=== PATIENT | female | born 1940 | race Caucasian/White ===

== ENCOUNTER 2020-07-03 14:11 | Inpatient (IN) | payer MEDICARE, OTHER, SELFPAY ==
[2020-07-03 14:17] VITALS: BP 127/62; PULSE 70; RESP 18; TEMP 36.6; O2SAT 98; BMI 21.2
--- NOTE | 2020-07-03 14:47 | W.ED.FALL ---
HPI - Fall General: Chief Complaint: Fall Stated Complaint: AMS Time Seen by Provider: 07/03/20 14:14 History of Present Illness: HPI Narrative: 80-year-old female comes in she seems somewhat confused she said she fell 2 nights ago did not strike her head or lose consciousness. She lives with her son and eminence. She has bilateral leg wounds have been treating for the local clinic. She denies fever sweats chills denies chest pain, her primary complaint is first the rash on her body and her second complaint is that she cannot wallk. complaint: fall Onset (ago): hour(s) Fall from: standing Fall witnessed: no Place fall occurred: home Loss of consciousness: None Prolonged down time: no Symptoms prior to fall: lightheadedness and dizziness Context: tripped/slipped Severity: moderate Associated symptoms-after fall: Reports no associated symptoms; Denies abdominal pain or chest pain Review of Systems Const: Denies: fever(s), chills, body aches, change in appetite, fatigue or malaise ENMT: Denies: throat pain, ear or mastoid pain, nasal discharge or nasal congestion Card: Denies: chest pain, edema, dyspnea on exertion or orthopnea Resp: Denies: dyspnea, productive cough or non-productive cough GI: Denies: abdominal pain, nausea, vomiting, hematemesis, coffee ground emesis, diarrhea, constipation, bloating, hematochezia or melena : Denies: flank pain, difficulty voiding, dysuria, urinary frequency or urinary urgency Skin/Breast: Denies: rash or pruritus PFS ED PFSH: Medical History (Updated 07/06/20 @ 08:14 by Farhad Santoro DO) Gait instability -strict fall precautions given recent frequent falls and limited ability to ambulate -PT evaluation appreciated -due to noted mention of altered mental status on EMS run sheet, ordered CT head without contrast which is negative for acute findings, noted moderate diffuse white matter disease (chronic) -X-rays done and report reviewed, no evidence of fracture Gastric ulcer Hypertension -normotensive, monitor vital signs -on metoprolol Hyponatremia -Likely secondary to hypovolemia -improved with hydration Liver cirrhosis -reported hx, no details available currently, had been following up with application development specialist in [place], request records -unclear etiology and complications -noted hyperbilirubinemia, with otherwise normal LFTs; trending down, continue to trend -US noted with no hepatomegaly, duct evaluation -noted ammonia, hepatitis panel, INR, PT -on cholestyramine Peripheral neuropathy -with noted macrocytic anemia, normal B12, folate, TSH -is on gabapentin, folic acid -suspect this is likely contributing to poor balance and gait instability Surgical History History of hysterectomy S/P appendectomy S/P tonsillectomy and adenoidectomy Family History (Updated 07/03/20 @ 19:48 by Mackenzie Rodriguez MD) Mother Lung disease Asthma Father CAD (coronary artery disease) Social History (Updated 07/03/20 @ 19:49 by Mackenzie Rodriguez MD) Smoking and tobacco status: former smoker Quit status (tobacco): has quit using tobacco Former quit date comment: 35 yrs ago Alcohol intake: current Alcohol intake frequency: holidays/special occasions only Substance/Drug Use: never Household members: children Marital status: / Current occupational status: retired Physical Exam Const: COMMON NORMALS: no acute distress GENERAL APPEARANCE: cooperative and comfortable ORIENTATION/CONSCIOUSNESS: Yes awake, Yes oriented to person, Yes oriented to place and Yes oriented to time HENMT: COMMON NORMALS: normocephalic and atraumatic HEAD & SCALP: normocephalic and atraumatic Eye: COMMON NORMALS: Equal, round and reactive pupils present, EOMs intact bilaterally, conjunctivae normal and no scleral icterus CONJUNCTIVA: Yes conjunctivae normal PUPIL: Yes Equal, round and reactive pupils present Neck/C-Spine: COMMON NORMALS: full ROM, no lymphadenopathy, supple and no JVD Lymph: LYMPHATIC: no lymphadenopathy noted and no lymphedema noted Resp: COMMON NORMALS: normal respiratory effort, No retractions, No use of accessory muscles and clear to auscultation bilaterally AUSCULTATION: clear to auscultation bilaterally Cardio: COMMON NORMALS: no JVD, regular rate, regular rhythm and No murmurs present (Cardio) RATE: regular rate RHYTHM: regular rhythm GI: COMMON NORMALS: Soft to palpation and No hepatosplenomegaly present AUSCULTATION: Yes normoactive bowel sounds PALPATION: Yes Soft to palpation, No Tenderness to palpation present (GI), No Guarding due to palpation present (GI) and Yes No hepatosplenomegaly present Extremity: COMMON NORMALS: normal to inspection, capillary refill normal, no clubbing, cyanosis or edema, no calf tenderness and no pedal edema Neuro: SENSORIUM/ORIENTATION: Yes oriented to person, Yes oriented to place and Yes oriented to time Skin: COMMON NORMALS: no rashes or lesions noted GENERAL SKIN EXAM: no rashes or lesions noted Course ED course: Patient unable to ambulate has mild cognitive impairment as well. Hyponatremia may play a role in it. We will go ahead and put her on observation discussed Dr. Rodriguez orders are written Vital Signs: Vital signs: Vital Signs Temperature 98.4 F 07/05/20 17:36 Pulse Rate 72 07/05/20 17:36 Respiratory Rate 18 07/05/20 17:36 Blood Pressure 108/65 07/05/20 17:36 Pulse Oximetry 95 07/05/20 17:36 MDM - Fall Lab Data: Labs: Lab Results 07/03/20 07/03/20 07/03/20 Range/Units 14:59 14:59 14:59 WBC 10.1 H (4.0-10.0) 10^3/ uL Corrected WBC RBC 3.31 L (4.1-5.3) 10^6/u L Hgb 11.0 L (11.5-15.3) g/dL Hct 33.1 L (37.0-47.0) % MCV 100.0 H (81-99) fL MCH 33.2 (28.0-34.0) pg MCHC 33.2 (30.0-36.0) g/dL RDW 13.2 (12.1-15.1) % Plt Count 111 L (130-400) 10^3/c mm MPV 11.1 H (7.4-10.4) fL Gran % Neut % (Auto) 46.0 % Lymph % (Auto) 17.2 % [place] % (Auto) 10.2 % Eos % (Auto) 25.1 % Baso % (Auto) 1.1 % Neut # (Auto) 4.64 (1.8-7.7) 10^3/u L Lymph # (Auto) 1.7 (0.8-4.8) 10^3/u L [place] # (Auto) 1.0 H (0.2-0.9) 10^3/u L Eos # (Auto) 2.5 H (0.0-0.8) 10^3/u L Baso # (Auto) 0.1 (0.0-0.1) 10^3/u L Absolute Gran (aut o) Nucleated RBC % (a uto) 0 % Nucleated RBCs # 0.0 /100WBC PT (12.1-14.9) SECO NDS INR (0.8-1.2) Sodium 130 L (136-145) mmol/L Potassium 4.5 (3.5-5.1) mmol/L Chloride 97 L (98-107) mmol/L Carbon Dioxide 25 (22-29) mmol/L Anion Gap 12.5 (5-19) BUN 10 (8-23) mg/dL Creatinine 0.7 (0.5-0.9) mg/dL GFR Calculation Not Reportable Glucose 79 (65-115) mg/dL Calculated Osmolal ity 265 L (285-295) mOsm/k g Calcium 9.8 (8.5-10.5) mg/dL Total Bilirubin 5.2 H 5.0 H (0.15-1.2) mg/dL AST 39 H (0-32) U/L ALT 22 (0-33) U/L Alkaline Phosphata se 51 (35-105) IU/L Ammonia (11-51) umol/L Total Protein 6.5 L (6.6-8.7) g/dL Albumin 3.4 L (3.5-5.2) g/dL Globulin 3.1 (1.3-4.6) g/dL Vitamin B12 (232-1245) pg/mL Folate (4.8-37.3) ng/mL TSH (0.27-4.20) uIU/ mL IgG (700-1600) mg/dL IgA (70-400) mg/dL IgM (40-230) mg/dL Rheumatoid Factor (0-14) IU/mL CHANDAN Screen (NEGATIVE) SS-A/Ro Antibody (<1.0 NEG) AI SS-B/La IgG Antibo dy (<1.0 NEG) AI Anti-ds DNA IgG Ab IU/mL Complement C3 (90-180) mg/dL Complement C4 (10-40) mg/dL Hepatitis A IgM Ab (Nonreactive) Hep Bs Antigen (Nonreactive) Hep B Core IgM Ab (Nonreactive) Hepatitis C Antibo dy (Nonreactive) 07/03/20 07/03/20 07/03/20 Range/Units 14:59 14:59 14:59 WBC (4.0-10.0) 10^3/ uL Corrected WBC RBC (4.1-5.3) 10^6/u L Hgb (11.5-15.3) g/dL Hct (37.0-47.0) % MCV (81-99) fL MCH (28.0-34.0) pg MCHC (30.0-36.0) g/dL RDW (12.1-15.1) % Plt Count (130-400) 10^3/c mm MPV (7.4-10.4) fL Gran % Neut % (Auto) % Lymph % (Auto) % [place] % (Auto) % Eos % (Auto) % Baso % (Auto) % Neut # (Auto) (1.8-7.7) 10^3/u L Lymph # (Auto) (0.8-4.8) 10^3/u L [place] # (Auto) (0.2-0.9) 10^3/u L Eos # (Auto) (0.0-0.8) 10^3/u L Baso # (Auto) (0.0-0.1) 10^3/u L Absolute Gran (aut o) Nucleated RBC % (a uto) % Nucleated RBCs # /100WBC PT (12.1-14.9) SECO NDS INR (0.8-1.2) Sodium (136-145) mmol/L Potassium (3.5-5.1) mmol/L Chloride (98-107) mmol/L Carbon Dioxide (22-29) mmol/L Anion Gap (5-19) BUN (8-23) mg/dL Creatinine (0.5-0.9) mg/dL GFR Calculation Glucose (65-115) mg/dL Calculated Osmolal ity (285-295) mOsm/k g Calcium (8.5-10.5) mg/dL Total Bilirubin (0.15-1.2) mg/dL AST (0-32) U/L ALT (0-33) U/L Alkaline Phosphata se (35-105) IU/L Ammonia (11-51) umol/L Total Protein (6.6-8.7) g/dL Albumin (3.5-5.2) g/dL Globulin (1.3-4.6) g/dL Vitamin B12 859 (232-1245) pg/mL Folate > 20.0 (4.8-37.3) ng/mL TSH (0.27-4.20) uIU/ mL IgG 1213 (700-1600) mg/dL IgA 399 (70-400) mg/dL IgM 991 H (40-230) mg/dL Rheumatoid Factor (0-14) IU/mL CHANDAN Screen (NEGATIVE) SS-A/Ro Antibody (<1.0 NEG) AI SS-B/La IgG Antibo dy (<1.0 NEG) AI Anti-ds DNA IgG Ab IU/mL Complement C3 47 L (90-180) mg/dL Complement C4 4 L (10-40) mg/dL Hepatitis A IgM Ab Non-reactive (Nonreactive) Hep Bs Antigen Non-reactive (Nonreactive) Hep B Core IgM Ab Non-reactive (Nonreactive) Hepatitis C Antibo dy Non-reactive (Nonreactive) 07/03/20 07/03/20 07/03/20 Range/Units 14:59 14:59 21:41 WBC (4.0-10.0) 10^3/ uL Corrected WBC RBC (4.1-5.3) 10^6/u L Hgb (11.5-15.3) g/dL Hct (37.0-47.0) % MCV (81-99) fL MCH (28.0-34.0) pg MCHC (30.0-36.0) g/dL RDW (12.1-15.1) % Plt Count (130-400) 10^3/c mm MPV (7.4-10.4) fL Gran % Neut % (Auto) % Lymph % (Auto) % [place] % (Auto) % Eos % (Auto) % Baso % (Auto) % Neut # (Auto) (1.8-7.7) 10^3/u L Lymph # (Auto) (0.8-4.8) 10^3/u L [place] # (Auto) (0.2-0.9) 10^3/u L Eos # (Auto) (0.0-0.8) 10^3/u L Baso # (Auto) (0.0-0.1) 10^3/u L Absolute Gran (aut o) Nucleated RBC % (a uto) % Nucleated RBCs # /100WBC PT 16.80 H (12.1-14.9) SECO NDS INR 1.32 H (0.8-1.2) Sodium (136-145) mmol/L Potassium (3.5-5.1) mmol/L Chloride (98-107) mmol/L Carbon Dioxide (22-29) mmol/L Anion Gap (5-19) BUN (8-23) mg/dL Creatinine (0.5-0.9) mg/dL GFR Calculation Glucose (65-115) mg/dL Calculated Osmolal ity (285-295) mOsm/k g Calcium (8.5-10.5) mg/dL Total Bilirubin (0.15-1.2) mg/dL AST (0-32) U/L ALT (0-33) U/L Alkaline Phosphata se (35-105) IU/L Ammonia (11-51) umol/L Total Protein (6.6-8.7) g/dL Albumin (3.5-5.2) g/dL Globulin (1.3-4.6) g/dL Vitamin B12 (232-1245) pg/mL Folate (4.8-37.3) ng/mL TSH (0.27-4.20) uIU/ mL IgG (700-1600) mg/dL IgA (70-400) mg/dL IgM (40-230) mg/dL Rheumatoid Factor 10.0 (0-14) IU/mL CHANDAN Screen Negative (NEGATIVE) SS-A/Ro Antibody <1.0 neg (<1.0 NEG) AI SS-B/La IgG Antibo dy (<1.0 NEG) AI Anti-ds DNA IgG Ab IU/mL Complement C3 (90-180) mg/dL Complement C4 (10-40) mg/dL Hepatitis A IgM Ab (Nonreactive) Hep Bs Antigen (Nonreactive) Hep B Core IgM Ab (Nonreactive) Hepatitis C Antibo dy (Nonreactive) 07/03/20 07/03/20 07/03/20 Range/Units 21:41 21:41 21:41 WBC (4.0-10.0) 10^3/ uL Corrected WBC RBC (4.1-5.3) 10^6/u L Hgb (11.5-15.3) g/dL Hct (37.0-47.0) % MCV (81-99) fL MCH (28.0-34.0) pg MCHC (30.0-36.0) g/dL RDW (12.1-15.1) % Plt Count (130-400) 10^3/c mm MPV (7.4-10.4) fL Gran % Neut % (Auto) % Lymph % (Auto) % [place] % (Auto) % Eos % (Auto) % Baso % (Auto) % Neut # (Auto) (1.8-7.7) 10^3/u L Lymph # (Auto) (0.8-4.8) 10^3/u L [place] # (Auto) (0.2-0.9) 10^3/u L Eos # (Auto) (0.0-0.8) 10^3/u L Baso # (Auto) (0.0-0.1) 10^3/u L Absolute Gran (aut o) Nucleated RBC % (a uto) % Nucleated RBCs # /100WBC PT (12.1-14.9) SECO NDS INR (0.8-1.2) Sodium (136-145) mmol/L Potassium (3.5-5.1) mmol/L Chloride (98-107) mmol/L Carbon Dioxide (22-29) mmol/L Anion Gap (5-19) BUN (8-23) mg/dL Creatinine (0.5-0.9) mg/dL GFR Calculation Glucose (65-115) mg/dL Calculated Osmolal ity (285-295) mOsm/k g Calcium (8.5-10.5) mg/dL Total Bilirubin (0.15-1.2) mg/dL AST (0-32) U/L ALT (0-33) U/L Alkaline Phosphata se (35-105) IU/L Ammonia 53 H (11-51) umol/L Total Protein (6.6-8.7) g/dL Albumin (3.5-5.2) g/dL Globulin (1.3-4.6) g/dL Vitamin B12 (232-1245) pg/mL Folate (4.8-37.3) ng/mL TSH (0.27-4.20) uIU/ mL IgG (700-1600) mg/dL IgA (70-400) mg/dL IgM (40-230) mg/dL Rheumatoid Factor (0-14) IU/mL CHANDAN Screen (NEGATIVE) SS-A/Ro Antibody (<1.0 NEG) AI SS-B/La IgG Antibo dy <1.0 neg (<1.0 NEG) AI Anti-ds DNA IgG Ab <1 IU/mL Complement C3 (90-180) mg/dL Complement C4 (10-40) mg/dL Hepatitis A IgM Ab (Nonreactive) Hep Bs Antigen (Nonreactive) Hep B Core IgM Ab (Nonreactive) Hepatitis C Antibo dy (Nonreactive) 07/04/20 07/04/20 07/04/20 Range/Units 04:15 04:15 04:15 WBC Cancelled (4.0-10.0) 10^3/ uL Corrected WBC Cancelled RBC Cancelled (4.1-5.3) 10^6/u L Hgb Cancelled (11.5-15.3) g/dL Hct Cancelled (37.0-47.0) % MCV Cancelled (81-99) fL MCH Cancelled (28.0-34.0) pg MCHC Cancelled (30.0-36.0) g/dL RDW Cancelled (12.1-15.1) % Plt Count Cancelled (130-400) 10^3/c mm MPV Cancelled (7.4-10.4) fL Gran % Cancelled Neut % (Auto) Cancelled % Lymph % (Auto) Cancelled % [place] % (Auto) Cancelled % Eos % (Auto) Cancelled % Baso % (Auto) Cancelled % Neut # (Auto) Cancelled (1.8-7.7) 10^3/u L Lymph # (Auto) Cancelled (0.8-4.8) 10^3/u L [place] # (Auto) Cancelled (0.2-0.9) 10^3/u L Eos # (Auto) Cancelled (0.0-0.8) 10^3/u L Baso # (Auto) Cancelled (0.0-0.1) 10^3/u L Absolute Gran (aut o) Cancelled Nucleated RBC % (a uto) Cancelled % Nucleated RBCs # Cancelled /100WBC PT (12.1-14.9) SECO NDS INR (0.8-1.2) Sodium 132 L (136-145) mmol/L Potassium 4.5 (3.5-5.1) mmol/L Chloride 101 (98-107) mmol/L Carbon Dioxide 23 (22-29) mmol/L Anion Gap 12.5 (5-19) BUN 14 (8-23) mg/dL Creatinine 0.8 (0.5-0.9) mg/dL GFR Calculation Not Reportable Glucose 178 H (65-115) mg/dL Calculated Osmolal ity 275 L (285-295) mOsm/k g Calcium 9.2 (8.5-10.5) mg/dL Total Bilirubin 3.8 H (0.15-1.2) mg/dL AST 28 (0-32) U/L ALT 19 (0-33) U/L Alkaline Phosphata se 47 (35-105) IU/L Ammonia (11-51) umol/L Total Protein 6.0 L (6.6-8.7) g/dL Albumin 3.0 L (3.5-5.2) g/dL Globulin 3.0 (1.3-4.6) g/dL Vitamin B12 (232-1245) pg/mL Folate (4.8-37.3) ng/mL TSH 0.53 (0.27-4.20) uIU/ mL IgG (700-1600) mg/dL IgA (70-400) mg/dL IgM (40-230) mg/dL Rheumatoid Factor (0-14) IU/mL CHANDAN Screen (NEGATIVE) SS-A/Ro Antibody (<1.0 NEG) AI SS-B/La IgG Antibo dy (<1.0 NEG) AI Anti-ds DNA IgG Ab IU/mL Complement C3 (90-180) mg/dL Complement C4 (10-40) mg/dL Hepatitis A IgM Ab (Nonreactive) Hep Bs Antigen (Nonreactive) Hep B Core IgM Ab (Nonreactive) Hepatitis C Antibo dy (Nonreactive) 07/04/20 Range/Units 07:36 WBC 8.9 (4.0-10.0) 10^3/ uL Corrected WBC RBC 3.26 L (4.1-5.3) 10^6/u L Hgb 10.7 L (11.5-15.3) g/dL Hct 33.0 L (37.0-47.0) % MCV 101.2 H (81-99) fL MCH 32.8 (28.0-34.0) pg MCHC 32.4 (30.0-36.0) g/dL RDW 13.4 (12.1-15.1) % Plt Count 86 L (130-400) 10^3/c mm MPV 11.3 H (7.4-10.4) fL Gran % Neut % (Auto) 86.9 % Lymph % (Auto) 10.8 % [place] % (Auto) 1.6 % Eos % (Auto) 0.1 % Baso % (Auto) 0.2 % Neut # (Auto) 7.75 H (1.8-7.7) 10^3/u L Lymph # (Auto) 1.0 (0.8-4.8) 10^3/u L [place] # (Auto) 0.1 L (0.2-0.9) 10^3/u L Eos # (Auto) 0.0 (0.0-0.8) 10^3/u L Baso # (Auto) 0.0 (0.0-0.1) 10^3/u L Absolute Gran (aut o) Nucleated RBC % (a uto) 0 % Nucleated RBCs # 0.0 /100WBC PT (12.1-14.9) SECO NDS INR (0.8-1.2) Sodium (136-145) mmol/L Potassium (3.5-5.1) mmol/L Chloride (98-107) mmol/L Carbon Dioxide (22-29) mmol/L Anion Gap (5-19) BUN (8-23) mg/dL Creatinine (0.5-0.9) mg/dL GFR Calculation Glucose (65-115) mg/dL Calculated Osmolal ity (285-295) mOsm/k g Calcium (8.5-10.5) mg/dL Total Bilirubin (0.15-1.2) mg/dL AST (0-32) U/L ALT (0-33) U/L Alkaline Phosphata se (35-105) IU/L Ammonia (11-51) umol/L Total Protein (6.6-8.7) g/dL Albumin (3.5-5.2) g/dL Globulin (1.3-4.6) g/dL Vitamin B12 (232-1245) pg/mL Folate (4.8-37.3) ng/mL TSH (0.27-4.20) uIU/ mL IgG (700-1600) mg/dL IgA (70-400) mg/dL IgM (40-230) mg/dL Rheumatoid Factor (0-14) IU/mL CHANDAN Screen (NEGATIVE) SS-A/Ro Antibody (<1.0 NEG) AI SS-B/La IgG Antibo dy (<1.0 NEG) AI Anti-ds DNA IgG Ab IU/mL Complement C3 (90-180) mg/dL Complement C4 (10-40) mg/dL Hepatitis A IgM Ab (Nonreactive) Hep Bs Antigen (Nonreactive) Hep B Core IgM Ab (Nonreactive) Hepatitis C Antibo dy (Nonreactive) Discharge Plan Discharge Patient Disposition: Placed in Observation Admit Provider: Mackenzie Rodriguez Clinical Impression: Acute hyponatremia, Mild cognitive impairment, Gait instability, Hypertension Condition: Stable Referrals: [facility] [Outside] Discharge Diet: Advance as tolerated and Regular Discharge Activity: Use walker/crutches as instructed and As per PT/OT instructions Patient Instructions: Dermatitis (Contact), Electrolyte/Mineral Supplement (By mouth), Hyponatremia, Cirrhosis (DC), Fall Prevention (DC) Interventions: ED Discharge Assessment Last Done: 07/03/20 19:00 ED Charges Last Done: 07/03/20 19:00 Discharge Date/Time: 07/03/20 19:27 Coding Level of Care Code ED Internal Medicine Doctor for Francesca Fwrommel Exam Comprehensive
[2020-07-03 15:16] LABS: Basophils # 0.1 10^3/uL (0.0-0.1); Basophils % 1.1 %; Eosinophils # 2.5 10^3/uL (0.0-0.8); Eosinophils % 25.1 %; Hematocrit 33.1 % (37.0-47.0); Lymphocytes # 1.7 10^3/uL (0.8-4.8); Lymphocytes % 17.2 %; Mean Corpuscular HGB Conc 33.2 g/dL (30.0-36.0); Mean Corpuscular Hemoglobin 33.2 pg (28.0-34.0); Mean Platelet Volume 11.1 fL (7.4-10.4); Monocytes % 10.2 %; Neutrophils # 4.64 10^3/uL (1.8-7.7); Nucleated Red Blood Cells % 0 %; Platelet Count 111 10^3/cmm (130-400); Red Blood Count 3.31 10^6/uL (4.1-5.3); Red Cell Distribution Width 13.2 % (12.1-15.1); White Blood Count 10.1 10^3/uL (4.0-10.0)
[2020-07-03] MEDS: cetirizine 10 mg Tablet PO (15:31)
[2020-07-03 15:35] LABS: Alanine Aminotransferase 22 U/L (0-33); Albumin Level 3.4 g/dL (3.5-5.2); Alkaline Phosphatase 51 IU/L (35-105); Anion Gap 12.5 (5-19); Aspartate Amino Transferase 39 U/L (0-32); Blood Urea Nitrogen 10 mg/dL (8-23); Calcium 9.8 mg/dL (8.5-10.5); Carbon Dioxide 25 mmol/L (22-29); Chloride 97 mmol/L (98-107); Creatinine Clr Calc Pharmacy 47.1151; Globulin 3.1 g/dL (1.3-4.6); Glucose 79 mg/dL (65-115); Osmolality Calculated 265 mOsm/kg (285-295); Potassium 4.5 mmol/L (3.5-5.1); Sodium 130 mmol/L (136-145); Total Bilirubin 5.2 mg/dL (0.15-1.2); Total Protein 6.5 g/dL (6.6-8.7)
--- NOTE | 2020-07-03 16:15 | XRR_ITS ---
PROCEDURE INFORMATION: Exam: XR Left Ankle Exam date and time: 07/03/2020 4:16 PM Age: 80 years old Clinical indication: Pain; Ankle; Left TECHNIQUE: Imaging protocol: XR Left ankle. Views: 1 or 2 views. COMPARISON: No relevant prior studies available. FINDINGS: Bones/joints: Negative for acute bony abnormality. A bone spurs present on the inferior calcaneus Soft tissues: Normal. XR/XR ankle LT 2V [id number] IMPRESSION: No acute findings. Bone spur calcaneus
--- NOTE | 2020-07-03 16:15 | XRR_ITS ---
PROCEDURE INFORMATION: Exam: XR Right Knee Exam date and time: 07/03/2020 4:41 PM Age: 80 years old Clinical indication: Pain; Knee; Right TECHNIQUE: Imaging protocol: XR Right knee. Views: 3 views. COMPARISON: No relevant prior studies available. FINDINGS: Bones/joints: Negative for acute bony abnormality Soft tissues: Normal. XR/XR knee RT 3V* [id number] IMPRESSION: No acute findings.
--- NOTE | 2020-07-03 16:15 | XRR_ITS ---
PROCEDURE INFORMATION: Exam: XR Right Hip with Pelvis when Performed Exam date and time: 07/03/2020 4:37 PM Age: 80 years old Clinical indication: Hip pain; Right hip TECHNIQUE: Imaging protocol: XR Right hip with pelvis when performed. Views: 1 view. COMPARISON: No relevant prior studies available. FINDINGS: Bones/joints: Unremarkable. No acute fracture. Soft tissues: Unremarkable. XR/XR hip RT 2-3V wo/w pel* [id number] IMPRESSION: No acute findings.
[2020-07-03 19:00] VITALS: BP 110/74; PULSE 78; RESP 18; O2SAT 98
--- NOTE | 2020-07-03 19:05 | PM.HP ---
Providers/Chief Complaint Admitting Physician: Mackenzie Rodriguez MD Chief Complaint: poor balance, frequent falls History of Present Illness Courtney Dodd is a 80 year old female with reported PMHx of HTN, Liver cirrhosis, presents via ambulance from home for evaluation of reported altered mental status. From review of EMS run sheet it seems that this had been initiated by home health nurse who had noted patient's altered mental status. On EMT arrival patient was alert, able to provide appropriate answers to questions with no overt signs of focal deficits. Reported generalized weakness. Much of my history is obtained directly from the patient and some collateral information obtained from telephone discussion with her daughter Cynthia. It seems that patient recently moved to [place] where she is living with her son, she had previously spent about a month with her daughter Cynthia in [place] and prior to that was living independently in [place]. Daughter reports that patient has a history of liver cirrhosis, etiology and complications are unknown, was previously following up with industrial garage servicer in [place]. It seems that patient has developed diffuse rash that initially started and was limited to her bilateral lower extremities, on my examination this has since spread to include her back and lower abdomen in addition to her upper extremities. Patient is a somewhat limited historian and as she has not been seen at our facility before they are no records to reference for comparison. Patient reports that she has had progressively poor balance and has been falling. She mentions hospitalization after which physical therapy was encouraged to assist with her gait instability. I am unsure about the details or timing of the hospitalization that she mentions. She does report that she had a fall earlier today and does have some numbness in her bilateral lower extremities. There is a reported history of peripheral neuropathy and she is on gabapentin per review of her medication list. Work-up in the ER indicates mild leukocytosis with a white count of 10.1, hemoglobin of 11.0, platelets of 111, sodium of 130, normal electrolytes otherwise and normal renal function, total bilirubin of 5.2, AST of 39 with otherwise normal LFTs, urinalysis is pending. Vital signs so far have been stable and she is currently on room air. On attempt to get her to stand up to go to the bathroom she is unable to weight-bear due to significant numbness in her feet. It seems that patient has established care with a primary care provider in [place] and family has provided previous medical records to her new PCP so we will make attempts to request records. Due to complaints of diffuse pain she had x-rays done none of which reveal any fractures. Due to concern that her rash might have an element of an allergic reaction she received some steroids and Zyrtec. Review of Systems Const: Reports: change in appetite (decreased appetite) and fatigue; Denies: fever(s) or chills Eyes: Denies: change in vision ENMT: Denies: odynophagia Card: Denies: chest pain, swelling of feet/ankles, lightheadedness, syncope or pre-syncope Resp: Denies: dyspnea or productive cough GI: Denies: abdominal pain, nausea, vomiting, hematemesis, diarrhea, constipation or hematochezia : Denies: difficulty voiding, dysuria or hematuria Musc: Denies: back pain Skin/Breast: Reports: rash (diffuse, itchy) Neuro: Reports: numbness in extremities, weakness in extremities, frequent falls and other (poor balance) Psych: Denies: anxiety Medications/Allergies Home Medications Medication Instructions Recorded Confirmed Last Taken Type acetaminophen [Tylenol Extra 500 mg PO QID PRN 07/03/20 07/03/20 07/03/20 History Strength] benzonatate 100 mg PO TID PRN 07/03/20 07/03/20 07/03/20 History cholestyramine-aspartame 4 g PO BID 07/03/20 07/03/20 07/03/20 History [Cholestyramine Light] folic acid 1 mg PO DAILY 07/03/20 07/03/20 07/03/20 History gabapentin 100 mg PO BEDTIME 07/03/20 07/03/20 07/02/20 History hydroxyzine pamoate 25 mg PO TID PRN 07/03/20 07/03/20 07/03/20 History metoprolol succinate 50 mg PO DAILY 07/03/20 07/03/20 07/03/20 History spironolactone 50 mg PO BID 07/03/20 07/03/20 07/03/20 History Allergies Allergy/AdvReac Type Severity Reaction Status Date / Time aspirin Allergy Unknown Verified 07/03/20 14:20 cortisone Allergy Unknown Verified 07/03/20 14:20 Sulfa (Sulfonamide Allergy Unknown Verified 07/03/20 14:20 Antibiotics) PFSH Acute PFSH: Medical History (Updated 07/03/20 @ 20:08 by Mackenzie Rodriguez MD) Gastric ulcer Hypertension Liver cirrhosis Peripheral neuropathy Surgical History History of hysterectomy S/P appendectomy S/P tonsillectomy and adenoidectomy Family History (Updated 07/03/20 @ 19:48 by Mackenzie Rodriguez MD) Mother Lung disease Asthma Father CAD (coronary artery disease) Social History (Updated 07/03/20 @ 19:49 by Mackenzie Rodriguez MD) Smoking and tobacco status: former smoker Quit status (tobacco): has quit using tobacco Former quit date comment: 35 yrs ago Alcohol intake: current Alcohol intake frequency: holidays/special occasions only Substance/Drug Use: never Household members: children Marital status: / Current occupational status: retired Vitals/I&O/Wt Last Vital Signs Temp 97.8 F 07/03/20 14:17 Pulse 78 07/03/20 19:00 Resp 18 07/03/20 19:00 BP 110/74 07/03/20 19:00 Pulse Ox 98 07/03/20 19:00 Weight last 48 hrs Weight 54.431 kg Physical Exam Const: COMMON NORMALS: no acute distress, patient oriented x3 and alert GENERAL APPEARANCE: cooperative and comfortable NUTRITIONAL APPEARANCE: thin ORIENTATION/CONSCIOUSNESS: Yes awake OTHER: -looks younger than stated age HENMT: COMMON NORMALS: normocephalic, atraumatic, hearing grossly normal bilaterally and moist oral mucous membranes HEAD & SCALP: normocephalic and atraumatic Eye: COMMON NORMALS: Equal, round and reactive pupils present, EOMs intact bilaterally and conjunctivae normal CONJUNCTIVA: Yes conjunctivae normal PUPIL: Yes Equal, round and reactive pupils present Neck/C-Spine: COMMON NORMALS: full ROM GENERAL: Yes normal visual inspection and Yes trachea midline Resp: COMMON NORMALS: normal respiratory effort, No retractions, No use of accessory muscles and clear to auscultation bilaterally EFFORT & INSPECTION: Yes able to speak in complete sentences, Yes symmetric chest movement and No tachypneic AUSCULTATION: clear to auscultation bilaterally OTHER: -on RA Cardio: COMMON NORMALS: regular rate, regular rhythm, S1 normal heart sound present, S2 normal heart sound present and No murmurs present (Cardio) RATE: regular rate RHYTHM: regular rhythm HEART SOUNDS: S1 normal heart sound present and S2 normal heart sound present GI: COMMON NORMALS: Normal to inspection, nondistended, normoactive bowel sounds present, Soft to palpation and non-tender PALPATION: Yes Soft to palpation Extremity: COMMON NORMALS: normal to inspection, full ROM and no clubbing, cyanosis or edema; negative for no pedal edema Neuro: COMMON NORMALS: patient oriented x3, moves all extremities and no focal motor deficits GAIT: Yes Other gait observations present OTHER: -unable to weight bear due to poor balance and paresthesia in bilateral LEs Psych: COMMON NORMALS: mental status grossly normal, Normal thought process present, cooperative, normal affect and speech normal ATTITUDE: Yes calm ACTIVITY/MOTOR BEHAVIOR: Yes fidgeting SPEECH: Yes normal speech THOUGHT PROCESS: Normal thought process present Skin: COMMON NORMALS: no rashes or lesions noted, no jaundice, no petechiae and no mottling GENERAL SKIN EXAM: no rashes or lesions noted Data : 07/03/20 14:59 07/03/20 14:59 Other data: I have reviewed labs (CBC, CMP) and imaging A&P Assessment and plan (1) Hyponatremia: -Likely secondary to hypovolemia -IVF hydration -no labs to compare -hold Aldactone -trend Na Status: Acute (2) Liver cirrhosis: -reported hx, no details available currently, had been following up with industrial garage servicer in [place], request records -unclear etiology and complications -noted hyperbilirubinemia, with otherwise normal LFTs; continue to trend -order US for evaluation of hepatomegaly, duct evaluation -check ammonia, hepatitis panel, INR, PT -resume cholestyramine Status: Chronic Qualifiers: Hepatic cirrhosis type: unspecified hepatic cirrhosis Ascites presence: without ascites Qualified Code(s): K74.60 - Unspecified cirrhosis of liver (3) Dermatitis: -noted to have diffuse pruritic dermatitis -order C3, C4, CHANDAN, RF, immunoglobulin levels to evaluate for possible cryoglobulinemia and vasculitis -hydroxyzine PRN Status: Acute (4) Peripheral neuropathy: -with noted macrocytic anemia, check B12, folate, as well as TSH -is on gabapentin, folic acid -suspect this is likely contributing to poor balance and gait instability Status: Chronic Qualifiers: Peripheral neuropathy type: polyneuropathy, unspecified Qualified Code(s): G62.9 - Polyneuropathy, unspecified (5) Hypertension: -normotensive, monitor vital signs -resume metoprolol Status: Chronic Qualifiers: Hypertension type: essential hypertension Qualified Code(s): I10 - Essential (primary) hypertension (6) Gait instability: -strict fall precautions given recent frequent falls and limited ability to ambulate -PT evaluation in AM -due to noted mention of altered mental status on EMS run sheet, will order CT head without contrast -X-rays done and report reviewed, no evidence of fracture Status: Acute Additional A&P Information -Advanced age -at least mild cognitive impairment; could be dementia -Thrombocytopenia and macrocytic anemia; chronicity unknown as no prior labs to compare, trend levels, monitor for bleeding -regular diet as tolerated -GI ppx with PPI -DVT ppx with SCDs, no AC due to noted anemia, thrombocytopenia -Dispo: has been living with son -Code status: FULL code; grandson Saeed is DPOA, need to confirm this Attestations Medical Necessity Statement*: Courtney Dodd's hospital stay will be less than 2 midnights for management of hyponatremia, gait instability. Time Spent in Patient Care: Greater than 35 minutes (>than 50% of time spent in counselling and/or direct pt care on unit). Coding Level of Care Code Acute Motor And Controls Tester for Francesca Aguirre Diagnoses Hyponatremia E87.1 Liver cirrhosis K74.60 Hepatic cirrhosis type: unspecified hepatic cirrhosis Ascites presence: without ascites Dermatitis L30.9 Peripheral neuropathy G62.9 Peripheral neuropathy type: polyneuropathy, unspecified Hypertension I10 Hypertension type: essential hypertension Gait instability R26.81
--- NOTE | 2020-07-03 19:43 | PC.NURSE ---
ADMIT NOTE Received to floor from ER. Is alert and oriented. c/o being hungry. Tells me she has been weak and having trouble moving her legs and walking. Says hurts to move them. Is able to lift legs and hold without drift but says hurts when she tries heel, knee, gilman maneuver. Also c/o weakness in arms but says not as bad. Has trouble with holding right arm up due to torn rotator cuff . Has rash all over body with numerous scratch mike. Says it itches so she scratches it. Says no idea where it came from. Reports recent falls. Has skin tear to right upper gilman and an abrasion to right great toe. PIID intact to left ac area. RN to complete admission assessment
[2020-07-03 19:49] VITALS: BP 127/62; PULSE 77; RESP 18; TEMP 36.7; O2SAT 99
[2020-07-03 20:00] VITALS: BP 114/58; PULSE 86; RESP 16; TEMP 36.6; O2SAT 98
--- NOTE | 2020-07-03 20:13 | CTR_ITS ---
PROCEDURE INFORMATION: Exam: CT Head Without Contrast Exam date and time: 07/03/2020 9:08 PM Age: 80 years old Clinical indication: Altered mental status/memory loss and dizziness and weakness, extremity; Bilateral; Additional info: Altered mental status, recurrent falls TECHNIQUE: Imaging protocol: Computed tomography of the head without contrast. Radiation optimization: All CT scans at this facility use at least one of these dose optimization techniques: automated exposure control; mA and/or kV adjustment per patient size (includes targeted exams where dose is matched to clinical indication); or iterative reconstruction. COMPARISON: No relevant prior studies available. RADIATION DOSE METRICS: Total DLP (mGy-cm): 734.18 FINDINGS: Brain: Moderate diffuse white matter disease likely reflecting chronic microvascular ischemic changes. Ventricles: Normal. No ventriculomegaly. Bones/joints: Unremarkable. No acute fracture. Sinuses: Visualized sinuses are unremarkable. No fluid levels. Mastoid air cells: Visualized mastoid air cells are well aerated. Soft tissues: Unremarkable. CT/CT head wo con* [id number] IMPRESSION: 1. Negative for intracranial hemorrhage or mass effect. 2. Moderate diffuse white matter disease likely reflecting chronic microvascular ischemic changes. Radiation Dose CTDIVOL = (mGy): DLP = 734.18 (mGy-cm)
[2020-07-03 20:29] LABS: INR 1.32 (0.8-1.2)
[2020-07-03] MEDS: gabapentin 100 mg Capsule PO (20:43)
[2020-07-03] MEDS: sodium chloride 0.9% 1,000 ML 75 ML IV (20:43)
[2020-07-03 20:48] LABS: Complement C3 47 mg/dL (90-180)
[2020-07-03 20:58] LABS: Hepatitis A Antibody IgM Non-Reactive (Nonreactive); Hepatitis B Core IgM Non-Reactive (Nonreactive); Hepatitis B Surface Antigen Non-Reactive (Nonreactive); Hepatitis C Virus Antibody Non-Reactive (Nonreactive); Vitamin B12 859 pg/mL (232-1245)
[2020-07-03 22:12] LABS: Ammonia 53 umol/L (11-51)
[2020-07-04] VITALS: BP 123/64; PULSE 87; RESP 14; TEMP 36.6; O2SAT 99
[2020-07-04] MEDS: hyDROXYzine 25 mg Capsule PO ×2 (02:54→13:34)
[2020-07-04 04:34] LABS: Immunoglobulin IGA 399 mg/dL (70-400); Immunoglobulin IGG 1213 mg/dL (700-1600)
[2020-07-04 05:03] LABS: Immunoglobulin IGM 991 mg/dL (40-230)
--- NOTE | 2020-07-04 05:44 | PC.NURSE ---
SHIFT SUMMARY Rested well. Received po Vistaril X1 for c/o rash itching. Have given several back rubs with lotion for same c/o. IV fluids infusing at 75m/hr rate. Is weak and unsteady when ambulates to bathroom with assist. Had CT Head done last pm
[2020-07-04 06:06] LABS: Alanine Aminotransferase 19 U/L (0-33); Alkaline Phosphatase 47 IU/L (35-105); Anion Gap 12.5 (5-19); Aspartate Amino Transferase 28 U/L (0-32); Blood Urea Nitrogen 14 mg/dL (8-23); Calcium 9.2 mg/dL (8.5-10.5); Carbon Dioxide 23 mmol/L (22-29); Chloride 101 mmol/L (98-107); Creatinine Clr Calc Pharmacy 47.1151; Glucose 178 mg/dL (65-115); Osmolality Calculated 275 mOsm/kg (285-295); Potassium 4.5 mmol/L (3.5-5.1); Sodium 132 mmol/L (136-145); Total Bilirubin 3.8 mg/dL (0.15-1.2)
[2020-07-04 06:26] LABS: Folate Level > 20.0 ng/mL (4.8-37.3)
--- NOTE | 2020-07-04 07:00 | US_ITS ---
WS: [id number] Complete ABDOMINAL ULTRASOUND HISTORY: evaluate for hepatomegaly COMPARISON: None available. Technically very difficult evaluation of the abdominal structures. Liver: 15.4 cm in length. Liver is not enlarged. There is mild coarsened echotexture throughout the l iver with low attenuation. No bile duct dilatation. Gallbladder: Normally distended gallbladder. No definite stones are identified in the gallbladder. Ec hogenic fold projecting into the gallbladder lumen. Gallbladder wall thickness: 0.2 cm. Pancreas: Poorly visualized. CBD: 0.2 cm. Right kidney: 10.3 cm x 5.0 cm x 5.7 cm. Poorly visualized kidney. No obstruction. Mass would be dif ficult to exclude. Left kidney: 8.0 cm x 4.7 cm x 5.1 cm. Poorly visualized kidney. No obstruction. Mass would be diffi cult to exclude. Spleen: Normal size and echogenicity. Abdominal aorta and IVC are within normal limits. No ascites. US/US abdomen complete* [id number] IMPRESSION: 1. Technically very difficult evaluation of the abdominal structures. 2. No hepatomegaly. 3. Kidneys are poorly visualized. No obstruction. 4. No gallstones are identified but the evaluation is limited.
[2020-07-04 07:26] LABS: Thyroid Stimulating Hormone 0.53 uIU/mL (0.27-4.20)
[2020-07-04 07:49] LABS: Basophils % 0.2 %; Eosinophils % 0.1 %; Hemoglobin 10.7 g/dL (11.5-15.3); Lymphocytes % 10.8 %; Mean Corpuscular HGB Conc 32.4 g/dL (30.0-36.0); Mean Corpuscular Hemoglobin 32.8 pg (28.0-34.0); Mean Corpuscular Volume 101.2 fL (81-99); Mean Platelet Volume 11.3 fL (7.4-10.4); Monocytes # 0.1 10^3/uL (0.2-0.9); Monocytes % 1.6 %; Neutrophils # 7.75 10^3/uL (1.8-7.7); Neutrophils % 86.9 %; Nucleated Red Blood Cells % 0 %; Platelet Count 86 10^3/cmm (130-400); Red Blood Count 3.26 10^6/uL (4.1-5.3); Red Cell Distribution Width 13.4 % (12.1-15.1); White Blood Count 8.9 10^3/uL (4.0-10.0)
[2020-07-04 07:53] VITALS: BP 111/58; PULSE 81; RESP 16; TEMP 36.9; O2SAT 99
[2020-07-04] MEDS: folic acid 1 mg Tablet PO (08:30)
[2020-07-04] MEDS: pantoprazole DR 40 mg Tablet PO (08:30)
[2020-07-04] MEDS: metoprolol succinate ER (24 HR) 50 mg Tablet PO (08:30)
[2020-07-04 10:57] VITALS: BP 110/60; PULSE 86; RESP 16; TEMP 36.9; O2SAT 98
--- NOTE | 2020-07-04 11:13 | PC.CHAP ---
Pastoral Care Encounter/Spiritual Assessment Type of Contact [] Declined product marketing coordinator visit [] Patient/Family/Request visit [] Outpatient visit [] Follow-up visit [] Physician referral [] Code/Alert [x] Routine visit [] Staff referral [] Actively dying [] Patient sleeping [] Family support [] [] Out of room [] Palliative care [] [] Receiving care in room [] Pre-surgical visit [] Trauma [] Long length of stay [] ICU visit [] Other: Relational/Emotional Strength [x] Patient feels connected with others/family/visitors/staff [] Distress [] Loneliness/isolation [] Abandonment Spirituality of Patient [x] Person of Heidi [x] Attends Yarsanism of their Heidi [x] Believes in Prayer [] Reads Bible or Rastafari materials [] There are Spiritual issues to be addressed Tennis Ball Cover Cementer Interventions [x] Prayer [x] Active listening [x] Non-anxious presence [x] Spiritual/emotional support [] Crisis/trauma care [] Spiritual counseling [] Bereavement support [] Provided bereavement packet [] Provided Bible/devotional materials [] Provided toy/stuffed animal, coloring book to patient or family member [] Provided Communion [] Anointing/[place] [] Salvation [x] Completed spiritual assessment [] Other: Impact on Illness or Injury [] Angry [] Fearful [] Anxious [] Often cries [] Exhaustion [] Unable to work [] Unable to attend protestant [] Unable to walk/stand [] Unable to read [] Unable to drive [] Unable to eat/drink [] Unable to sleep [] Unable to be with family [] Patient intubated [x] Other: Summary Patient is a resident of [place] and [place] visiting [place]. Patient attends [employer] in [place]. Time spent with patient 10 minutes
[2020-07-04 15:41] VITALS: BP 104/49; PULSE 86; RESP 16; TEMP 37.1; O2SAT 96
[2020-07-04 19:58] VITALS: BP 103/42; PULSE 89; RESP 20; TEMP 37.2; O2SAT 95
--- NOTE | 2020-07-04 19:58 | PM.PN ---
Subjective Subjective: Interval history: Patient seen and examined earlier this afternoon, seen again while son was visiting, she is much more alert, oriented x3, has some difficulty initiating ambulation but once she gets going this seems to improve. Has worked well with therapy today. Oral intake much better. Had 500 mL urine output overnight, hemodynamically stable. Improvement in sodium from 130->132, stable hemoglobin. Noted improvement in T bili and normalization of other LFTs. Diffuse dermatitis appears less erythematous and she reports less pruritus today. Medications: Reviewed: Yes Medication Review Details: Active Medications Generic Name Dose Route Start Last Admin Trade Name Freq PRN Reason Stop Dose Admin Acetaminophen 500 mg 07/03/20 19:49 Tylenol PO QID PRN MILD PAIN OR INCR EASE TEMP Benzonatate 100 mg 07/03/20 19:49 Tessalon Pearls PO TID PRN Cough Cholestyramine Res in 4 gm 07/04/20 09:00 07/04/20 17:11 Questran PO Not Given BID SARAH Folic Acid 1 mg 07/04/20 09:00 07/04/20 08:30 Folic Acid PO 1 mg DAILY SARAH Administration Gabapentin 100 mg 07/03/20 21:00 07/03/20 20:43 Neurontin PO 100 mg BEDTIME SARAH Administration Hydroxyzine [place] e 25 mg 07/03/20 19:49 07/04/20 13:34 Vistaril PO 25 mg TID PRN Administration Anxiety Sodium Chloride 1,000 mls @ 75 ml s/hr 07/03/20 19:49 07/03/20 20:43 Sodium Chloride 0.9% IV 75 mls/hr .[id number] SARAH Administration Metoprolol Succina te 50 mg 07/04/20 09:00 07/04/20 08:30 Toprol Xl PO 50 mg DAILY SARAH Administration Ondansetron HCl 4 mg 07/03/20 19:49 Zofran IVP Q6H PRN vomiting, or N/V if npo Pantoprazole Sodiu m 40 mg 07/04/20 09:00 07/04/20 08:30 Protonix PO 40 mg DAILY ASRAH Administration aspirin Allergy (Verified 07/03/20 14:20) Unknown cortisone Allergy (Verified 07/03/20 14:20) Unknown Sulfa (Sulfonamide Antibiotics) Allergy (Verified 07/03/20 14:20) Unknown Vitals/I&O/Wt Last Vital Signs Temp 98.8 F 07/04/20 15:41 Pulse 86 07/04/20 15:41 Resp 16 07/04/20 15:41 BP 104/49 07/04/20 15:41 Pulse Ox 96 07/04/20 15:41 07/04/20 07/04/20 07/04/20 06:59 14:59 22:59 Intake Total 120 / 360 600 / 600 Output Total 200 / 500 400 / 400 300 / 700 Balance -80 / -140 200 / 200 -300 / -100 Weight last 48 hrs Weight 54.476 kg Weight 54.431 kg Physical Exam Const: COMMON NORMALS: no acute distress, patient oriented x3 and alert GENERAL APPEARANCE: cooperative and comfortable NUTRITIONAL APPEARANCE: thin ORIENTATION/CONSCIOUSNESS: Yes awake OTHER: -looks younger than stated age HENMT: COMMON NORMALS: normocephalic, atraumatic, hearing grossly normal bilaterally and moist oral mucous membranes HEAD & SCALP: normocephalic and atraumatic Eye: COMMON NORMALS: Equal, round and reactive pupils present, EOMs intact bilaterally and conjunctivae normal CONJUNCTIVA: Yes conjunctivae normal PUPIL: Yes Equal, round and reactive pupils present Neck/C-Spine: COMMON NORMALS: full ROM GENERAL: Yes normal visual inspection and Yes trachea midline Resp: COMMON NORMALS: normal respiratory effort, No retractions, No use of accessory muscles and clear to auscultation bilaterally EFFORT & INSPECTION: Yes able to speak in complete sentences, Yes symmetric chest movement and No tachypneic AUSCULTATION: clear to auscultation bilaterally OTHER: -on RA Cardio: COMMON NORMALS: regular rate, regular rhythm, S1 normal heart sound present, S2 normal heart sound present and No murmurs present (Cardio) RATE: regular rate RHYTHM: regular rhythm HEART SOUNDS: S1 normal heart sound present and S2 normal heart sound present GI: COMMON NORMALS: Normal to inspection, nondistended, normoactive bowel sounds present, Soft to palpation and non-tender PALPATION: Yes Soft to palpation Extremity: COMMON NORMALS: normal to inspection, no clubbing, cyanosis or edema and no pedal edema NARRATIVE EXTREMITY EXAM: -decreased ROM of R shoulder Neuro: COMMON NORMALS: patient oriented x3, moves all extremities and no focal motor deficits SENSORIUM/ORIENTATION: Yes alert GAIT: Yes Other gait observations present OTHER: -noted poor balance during ambulation, reported paresthesia in bilateral LEs Psych: COMMON NORMALS: mental status grossly normal, Normal thought process present, cooperative, normal affect and speech normal ATTITUDE: Yes calm SPEECH: Yes normal speech THOUGHT PROCESS: Normal thought process present Skin: COMMON NORMALS: no jaundice, no petechiae and no mottling NARRATIVE SKIN EXAM: -diffuse erythematous, pruritic dermatitis, involves bilateral UEs, LEs, lower abdomen, back Data : 07/04/20 07:36 07/04/20 04:15 A&P Assessment and plan (1) Hyponatremia: -Likely secondary to hypovolemia -IVF hydration -no labs to compare -hold Aldactone -trend Na; improving Status: Acute (2) Liver cirrhosis: -reported hx, no details available currently, had been following up with portable irrigation operator in [place], request records -unclear etiology and complications -noted hyperbilirubinemia, with otherwise normal LFTs; trending down, continue to trend -US noted with no hepatomegaly, duct evaluation -noted ammonia, hepatitis panel, INR, PT -on cholestyramine Status: Chronic Qualifiers: Hepatic cirrhosis type: unspecified hepatic cirrhosis Ascites presence: without ascites Qualified Code(s): K74.60 - Unspecified cirrhosis of liver (3) Dermatitis: -noted to have diffuse pruritic dermatitis -low C3 and C4, CHANDAN & RF pending, Ig M levels elevated; done to evaluate for possible cryoglobulinemia and vasculitis -hydroxyzine PRN -dermatology evaluation as outpatient Status: Acute (4) Peripheral neuropathy: -with noted macrocytic anemia, normal B12, folate, TSH -is on gabapentin, folic acid -suspect this is likely contributing to poor balance and gait instability Status: Chronic Qualifiers: Peripheral neuropathy type: polyneuropathy, unspecified Qualified Code(s): G62.9 - Polyneuropathy, unspecified (5) Hypertension: -normotensive, monitor vital signs -on metoprolol Status: Chronic Qualifiers: Hypertension type: essential hypertension Qualified Code(s): I10 - Essential (primary) hypertension (6) Gait instability: -strict fall precautions given recent frequent falls and limited ability to ambulate -PT evaluation appreciated -due to noted mention of altered mental status on EMS run sheet, ordered CT head without contrast which is negative for acute findings, noted moderate diffuse white matter disease (chronic) -X-rays done and report reviewed, no evidence of fracture Status: Acute Additional A&P Information -Advanced age -at least mild cognitive impairment; could be dementia -Thrombocytopenia and macrocytic anemia; chronicity unknown as no prior labs to compare, trend levels, monitor for bleeding. Both stable -regular diet as tolerated -GI ppx with PPI -DVT ppx with SCDs, no AC due to noted anemia, thrombocytopenia -Dispo: has been living with son Saud Fong -Code status: FULL code; grandson Saeed is DPOA Attestations Medical Necessity Statement*: Patient requires hospitalization for additional IVF hydration. Time Spent in Patient Care: 16 - 35 minutes (>than 50% of time spent in counselling and/or direct pt care on unit). Coding Level of Care Code Acute Supervisor [employer] for Chg Fwd Diagnoses Hyponatremia E87.1 Liver cirrhosis K74.60 Hepatic cirrhosis type: unspecified hepatic cirrhosis Ascites presence: without ascites Dermatitis L30.9 Peripheral neuropathy G62.9 Peripheral neuropathy type: polyneuropathy, unspecified Hypertension I10 Hypertension type: essential hypertension Gait instability R26.81
[2020-07-04 20:19] VITALS: BP 102/44
[2020-07-04] MEDS: acetaminophen 500 mg Tablet PO (21:29)
[2020-07-04] MEDS: gabapentin 100 mg Capsule PO (21:29)
[2020-07-05] VITALS (8 sets, daily range): BP systolic 108–128; BP diastolic 46–65; PULSE 72–79; RESP 18; TEMP 36.6–37.1; O2SAT 95–99
[2020-07-05] MEDS: sodium chloride 0.9% 1,000 ML 75 ML IV (04:24)
[2020-07-05] MEDS: metoprolol succinate ER (24 HR) 50 mg Tablet PO (08:35)
[2020-07-05] MEDS: pantoprazole DR 40 mg Tablet PO (08:35)
[2020-07-05] MEDS: folic acid 1 mg Tablet PO (08:35)
[2020-07-05] MEDS: hyDROXYzine 25 mg Capsule PO (08:36)
--- NOTE | 2020-07-05 11:26 | P.DS_ITS ---
Discharge Providers Date of Admission: 07/05/20 08:18 Date of Discharge: July 05, 2020 Attending Provider at Admission: Mackenzie Rodriguez MD Attending Provider at Discharge: Mackenzie Rodriguez MD Consults: None Primary Care Provider: Dr. Mackenzie Cobian in [place], [place] Diagnoses at Discharge Discharge Diagnosis (1) Hyponatremia: Status: Acute Problem details: -Likely secondary to hypovolemia -improved with hydration (2) Liver cirrhosis: Status: Chronic Problem details: -reported hx, no details available currently, had been following up with customer service driver in [place], request records -unclear etiology and complications -noted hyperbilirubinemia, with otherwise normal LFTs; trending down, continue to trend -US noted with no hepatomegaly, duct evaluation -noted ammonia, hepatitis panel, INR, PT -on cholestyramine Qualifiers: Hepatic cirrhosis type: unspecified hepatic cirrhosis Ascites presence: without ascites Qualified Code(s): K74.60 - Unspecified cirrhosis of liver (3) Dermatitis: Status: Acute Problem details: -noted to have diffuse pruritic dermatitis -low C3 and C4, CHANDAN & RF pending, Ig M levels elevated; done to evaluate for possible cryoglobulinemia and vasculitis -hydroxyzine PRN -dermatology evaluation as outpatient, wants to follow up on return to [place] (4) Peripheral neuropathy: Status: Chronic Problem details: -with noted macrocytic anemia, normal B12, folate, TSH -is on gabapentin, folic acid -suspect this is likely contributing to poor balance and gait instability Qualifiers: Peripheral neuropathy type: polyneuropathy, unspecified Qualified Code(s): G62.9 - Polyneuropathy, unspecified (5) Hypertension: Status: Chronic Problem details: -normotensive, monitor vital signs -on metoprolol Qualifiers: Hypertension type: essential hypertension Qualified Code(s): I10 - Essential (primary) hypertension (6) Gait instability: Status: Chronic Problem details: -strict fall precautions given recent frequent falls and limited ability to ambulate -PT evaluation appreciated -due to noted mention of altered mental status on EMS run sheet, ordered CT head without contrast which is negative for acute findings, noted moderate diffuse white matter disease (chronic) -X-rays done and report reviewed, no evidence of fracture Other Information Additional DC diagnoses/information: -Advanced age -at least mild cognitive impairment; could be dementia -Thrombocytopenia and macrocytic anemia; chronicity unknown as no prior labs to compare, trend levels, monitor for bleeding. Both stable Reason for Visit Reason for Visit: poor balance, frequent falls Hospital Course Hospital Course: Patient was admitted to the medical surgical floor and started on IV fluid hydration secondary to noted hyponatremia and clinical evidence of dehydration. Sodium improved with hydration. She was noted to have hyperbilirubinemia which has improved as well with otherwise normal LFTs. Ultrasound was done to evaluate for hepatomegaly or duct dilatation both of which were not noted. Patient has a known history of liver cirrhosis and has been following up with hepatology in [place] where she is originally from. She also has had a primary care provider in [place] as well and has been following up with her via telemedicine and would like to continue this. She had moved to be closer to family due to coronavirus pandemic. She has known peripheral neuropathy as well which is likely contributing to her poor balance and gait instability. She was evaluated by therapy and recommendation made for continued use of a wheeled walker. She already has home health services including therapy established at home. Her mentation has improved during her hospital stay, she has been hemodynamically stable, on room air, afebrile. She has a noted diffuse erythematous rash that would benefit from dermatology evaluation. Patient would like to follow-up in [place] with her specialist once she is able to return there. For now she is managing her symptoms particularly in terms of controlling pruritus. She is encouraged to continue to hydrate orally and as hyponatremia is likely also secondary to liver cirrhosis I will add salt tablets to continue to maintain her sodium levels. Son Saud Fong was updated at bedside. Patient is to seek medical attention immediately should her symptoms recur. Of note patient does seem to have at least a mild degree of underlying dementia with some noted intermittent forgetfulness particularly in terms of short-term memory. Discharge Summary: -Patient to continue to follow-up with her primary care provider Dr. Cobian per her preference, in addition to her customer service driver/GI specialist. Physical Exam Const: COMMON NORMALS: no acute distress, patient oriented x3 and alert GENERAL APPEARANCE: cooperative and comfortable NUTRITIONAL APPEARANCE: thin ORIENTATION/CONSCIOUSNESS: Yes awake OTHER: -looks younger than stated age HENMT: COMMON NORMALS: normocephalic, atraumatic, hearing grossly normal bilaterally and moist oral mucous membranes HEAD & SCALP: normocephalic and atraumatic Eye: COMMON NORMALS: Equal, round and reactive pupils present, EOMs intact bilaterally and conjunctivae normal CONJUNCTIVA: Yes conjunctivae normal PUPIL: Yes Equal, round and reactive pupils present Neck/C-Spine: COMMON NORMALS: full ROM GENERAL: Yes normal visual inspection and Yes trachea midline Resp: COMMON NORMALS: normal respiratory effort, No retractions, No use of accessory muscles and clear to auscultation bilaterally EFFORT & INSPECTION: Yes able to speak in complete sentences, Yes symmetric chest movement and No tachypneic AUSCULTATION: clear to auscultation bilaterally OTHER: -on RA Cardio: COMMON NORMALS: regular rate, regular rhythm, S1 normal heart sound present, S2 normal heart sound present and No murmurs present (Cardio) RATE: regular rate RHYTHM: regular rhythm HEART SOUNDS: S1 normal heart sound present and S2 normal heart sound present GI: COMMON NORMALS: Normal to inspection, nondistended, normoactive bowel sounds present, Soft to palpation and non-tender PALPATION: Yes Soft to palpation Extremity: COMMON NORMALS: normal to inspection, no clubbing, cyanosis or edema and no pedal edema NARRATIVE EXTREMITY EXAM: -decreased ROM of R shoulder Neuro: COMMON NORMALS: patient oriented x3, moves all extremities and no focal motor deficits SENSORIUM/ORIENTATION: Yes alert GAIT: Yes Other gait observations present OTHER: -noted poor balance during ambulation, reported paresthesia in bilateral LEs Psych: COMMON NORMALS: mental status grossly normal, Normal thought process present, cooperative, normal affect and speech normal ATTITUDE: Yes calm ACTIVITY/MOTOR BEHAVIOR: Yes fidgeting SPEECH: Yes normal speech THOUGHT PROCESS: Normal thought process present Skin: COMMON NORMALS: no jaundice, no petechiae and no mottling NARRATIVE SKIN EXAM: -diffuse erythematous, pruritic dermatitis, involves bilateral UEs, LEs, lower abdomen, back Discharge Data Data Completed and Pending: Completed Studies During Hospitalization Category Date Time Status CT head wo con* 7 0450 Routine Cat Scan 07/03/20 20:13 Completed XR ankle LT 2V 73 600 Stat Exams 07/03/20 16:15 Completed XR hip RT 2-3V wo /w pel* [id number] Stat Exams 07/03/20 16:15 Completed XR knee RT 3V* 73 [id number] Stat Exams 07/03/20 16:15 Completed US abdomen comple te* [id number] Routine Ultrasound 07/04/20 07:00 Completed Pending at discharge Category Date Time Status CHANDAN Screen w/ Ref angely Routine Lab 07/03/20 21:41 Received Anti Double Stran ded DNA AB Routine Lab 07/03/20 21:41 Received SS A Ro Sjogrens Antibody Routine Lab 07/03/20 21:41 Received SS-B/LA Antibody IGG Routine Lab 07/03/20 21:41 Received Urinalysis Stat Lab 07/03/20 19:11 Ordered Vitals: Last Vital Signs Temp 98.1 F 07/05/20 08:00 Pulse 73 07/05/20 08:00 Resp 18 07/05/20 08:00 BP 117/54 07/05/20 08:00 Pulse Ox 99 07/05/20 07:41 Discharge Plan Discharge Patient Disposition: Home Health Service Condition: Stable Prescriptions: New sodium chloride 1 gram tablet 1,000 mg PO DAILY Qty: 30 RF: 0 Continued metoprolol succinate 50 mg Tablet Extended Release 24 Hr 50 mg PO DAILY RF: 0 Tylenol Extra Strength 500 mg Tablet 500 mg PO QID PRN (Reason: Pain) RF: 0 benzonatate 100 mg Capsule 100 mg PO TID PRN (Reason: Cough) RF: 0 folic acid 1 mg Tablet 1 mg PO DAILY RF: 0 gabapentin 100 mg Capsule 100 mg PO BEDTIME RF: 0 spironolactone 50 mg Tablet 50 mg PO BID RF: 0 hydroxyzine pamoate 25 mg Capsule 25 mg PO TID PRN (Reason: Anxiety) RF: 0 Cholestyramine Light 4 gram Powder 4 g PO BID RF: 0 Discharge Orders: Discharge Order (Routine); Ordered 07/05/20 Ordered By: Mackenzie Rodriguez Discharge Diet: Advance as tolerated and Regular Discharge Activity: Use walker/crutches as instructed and As per PT/OT instructions Patient Instructions: Dermatitis (Contact), Electrolyte/Mineral Supplement (By mouth), Hyponatremia, Cirrhosis (DC), Fall Prevention (DC) Discharge Attestations Time Spent in Discharge Care*: greater than 30 min Specific Discharge Activities: Specific discharge activities: educating patient, educating and/or supporting family/caregiver, discussing with egg caser/social workers/dc planners, documenting/other paperwork and evaluating patient/reviewing data Status at Discharge: Cognitive status at discharge: mildly impaired cognition , Behavioral status at discharge: cooperative and dependent in ADL's , Functional status at discharge: uses cane/walker Overall status at discharge: patient is progressing back to baseline Quality Metrics Clinical Quality Measures During this hospital stay, did patient experience: None Coding Level of Care Code 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
[2020-07-05 11:29] LABS: Anti-Double Strand DNA AB <1 IU/mL; SS-B/LA IGG <1.0 NEG AI (<1.0 NEG)
[2020-07-05 12:29] LABS: SS A Ro Sjogrens Antibody <1.0 NEG AI (<1.0 NEG)
[2020-07-05 16:44] LABS: Anti-Nuclear Antibody Screen NEGATIVE (NEGATIVE)
== END 2020-07-05 17:37 | disposition home health service (06) | DRG 641 ==
LOC: ER 17:35 → MEDSURG 18:45
PROVIDERS: Family Medicine; Admitting Provider Family Medicine; Visit Provider Family Medicine
DX: E87.1 Hypo-osmolality and hyponatremia (principal); K74.60 Unspecified cirrhosis of liver; L30.9 Dermatitis, unspecified; G62.9 Polyneuropathy, unspecified; I10 Essential (primary) hypertension; D53.9 Nutritional anemia, unspecified; F03.90 Unspecified dementia, unspecified severity, without behavioral disturbance, psychotic disturbance, mood disturbance, and anxiety; D69.6 Thrombocytopenia, unspecified; Z87.891 Personal history of nicotine dependence
CPT/HCPCS: 12345; 36415; 70450; 73502; 73562; 73600; 76700; 80053; 80074; 82140; 82247; 82607; 82746; 82784; 84443; 85025; 85610; 86038; 86160; 86225; 86235; 86431; 96374; 96375; 97110; 97116; 97161; 97165; 97535; 99282; 99284; G0378; J2930; J7030